=== PATIENT | male | born 1985 | race Caucasian/White ===

== ENCOUNTER 2021-03-05 19:25 | Emergency (ER) | payer OTHER ==
[2021-03-05] MEDS ORDERED: predniSONE 20 MG TABLET PO STA (20:54)
[2021-03-05] MEDS ORDERED: CYCLOBENZAPRINE 10 MG Prepack 2 PO STA (20:54)
[2021-03-05] MEDS ORDERED: HYDROcod/ACET 5/325 Prepack 4 PO STA (20:54)
[2021-03-05] MEDS ORDERED: KETOROLAC 60 MG/2 ML VIAL IM STA (20:54)
--- NOTE | 2021-03-05 20:56 | ED Physician Documentation ---
PD HPI BACK PAIN - Stated complaint Stated Complaint: LOW BACK PAIN - Chief complaint Chief Complaint: Back Pain - History obtained from History obtained from: Patient - Additional information Additional information: 35-year-old gentleman with long history of mild back problems was getting up from a sitting position today and suddenly developed significantly more severe lumbar pain radiating into both legs. He feels like he is locked up and cannot move. Pain radiates into the buttocks and thighs just a bit. He denies weakness, numbness, tingling, saddle anesthesia, fevers, incontinence of bowel or bladder bladder. Review of Systems Constitutional: reports: Reviewed and negative Eyes: reports: Reviewed and negative Ears: reports: Reviewed and negative Nose: reports: Reviewed and negative Throat: reports: Reviewed and negative PD PAST MEDICAL HISTORY - Present Medications Home Medications: Ambulatory Orders Medication Instructions Recorded Confirmed HYDROcod/ACETAM 5/325 [Holden 5/325] 1 - 2 tab PO Q6H PRN #10 tablet 03/05/21 predniSONE [Deltasone] 20 mg PO [id number] #21 tab 03/05/21 - Allergies Allergies/Adverse Reactions: Allergies Allergy/AdvReac Type Severity Reaction Status Date / Time No Known Drug Allergies Allergy Verified 03/05/21 19:29 PD ED PE NORMAL - Vitals Vital signs reviewed: Yes - General General: Alert and oriented X 3, Other (Winces with any motion. Comfortable at rest.) - HEENT HEENT: PERRL, EOMI - Neck Neck: Supple, no meningeal sign, No bony TTP - Back Back: Other (Some tenderness of the paralumbar musculature especially on the right. No severe midline spinal tenderness.) - Extremities Extremities: Other (The patient has equal and normal Achilles and patellar reflexes bilaterally. Normal sensation in all areas of the legs. Patient denies saddle anesthesia. Normal strength in flexion-extension at the ankles, knees, and flexion of the hips.) - Neuro Neuro: Alert and oriented X 3, Normal speech Results - Vitals Vitals: Vital Signs - 24 hr 03/05/21 19:29 Temperature 36.5 C Heart Rate 72 Respiratory 16 Rate Blood Pressure 150/80 H O2 Saturation 98 Oxygen O2 Source Room air PD MEDICAL DECISION MAKING - ED course ED course: This patient has seemingly uncomplicated musculoskeletal back pain. The patient has no "red flags." Specifically denies IV drug use, fevers, incontinence, saddle anesthesia. Spinal epidural abscess was considered, given that the patient has no fever, is not diabetic, has no spinal tenderness, does not use IV drugs, and has no bilateral neurologic symptoms, the diagnosis of spinal e pidural abscess is considered exceedingly unlikely. I am prescribing a short course of short-acting opioid pain medication for this patient. 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 I have discussed that the opioids are for short term therapy only, and will not be refilled from the ED. Departure - Departure Disposition: Home, Self Care Clinical Impression: Back pain Qualifiers: Back pain location: low back pain Chronicity: acute Back pain laterality: right Sciatica presence: without sciatica Qualified Code(s): M54.5 - Low back pain Condition: Good Record reviewed to determine appropriate education?: Yes Instructions: ED Neck Back Pain General Prescriptions: predniSONE [Deltasone] 20 mg PO [id number] #21 tab HYDROcod/ACETAM 5/325 [Holden 5/325] 1 - 2 tab PO Q6H PRN #10 tablet PRN Reason: Pain Comments: You can and should take an hqah-bqn-xqtsyxs anti-inflammatory such as ibuprofen or Aleve along with the other medications. Heat and gentle stretching. [place] Return for new or worsening symptoms. I am prescribing a short course of narcotic pain medication for you. These are potentially dangerous and addictive medications that should be used carefully. These medications may constipate you. Take an rcsz-njo-ynxcqch stool softener (docusate) twice daily with plenty of water while taking these medications. If you go 24 hours without a bowel movement, take nctf-tqj-reqqwlv miralax, per package instructions. Do not drink or drive while taking these medications. If you received narcotic or sedating medications while in the emergency department, do not drive for 24 hours. Store this medication in a safe, secure place and out of reach of children. It is a violation of federal law to give or sell this medication to another person or to use in a manner other than prescribed. The ED will not refill narcotic prescriptions, including prescriptions lost or stolen. To dispose of unwanted medications: 1. [facility] at [address] in [place] has a medication drop box. They accept prescription medications (in pill form) Paul through Friday 9:00 a.m. to 5:00 p.m. 2. The [facility] [employer] accepts prescription medications (in pill form only) for disposal year round. Call for more information. 3. Contact the [facility] for the next [facility] sponsored prescription drug collection event. , [phone], or [phone]; Note that many narcotic pain relievers also contain Tylenol/acetaminophen. Please ensure that your total dose of acetaminophen from all sources does not exceed 3 g (3000 mg) per day. Forms: Activity restrictions
[2021-03-05 21:20] VITALS: BP 128/75
== END 2021-03-05 21:18 | disposition home or self-care (01) ==
LOC: ED 19:25
DX: M54.5 Low back pain (principal)
CPT/HCPCS: 96372; 99283; 99284; J7512

== ENCOUNTER 2023-02-13 13:44 | Outpatient (CLI) | payer OTHER ==
--- NOTE | 2023-02-13 14:28 | Sleep Patient Instructions ---
Sleep Center Visit Summary - Patient Visit Information Reason for Visit: Initial consult for evaluation of sleep disordered breathing and other sleep issues. - Patient Instructions Instructions Attached: Sleep Study, Sleep Clinic Visit Additional Instructions: You will be completing a sleep study, either an in-lab polysomnography (PSG) or home sleep study (HST). You will follow-up in the sleep care office after the sleep study is completed to hear the results and talk about therapy, if needed. A prescription for Zolpidem 5 mg for night of sleep study. Please fill prescription and bring with you to the study. You will be called by our office staff to schedule this appointment, but you may contact us with any questions. - Clinic Information Contact: [facility] [address] [place] [address] [email or web address] T: [phone]
--- NOTE | 2023-02-13 14:34 | SLEEP CARE CONSULTATION ---
Information from patient questionnaire entered by Jose Martin Hyman. I have reviewed and concur with the information entered by Jose Martin Hyman. This document represents the service I personally performed and the decisions made by me, Rose Hernandez ARNP. History of Present Illness Service Date and Time: 02/13/2023 1344 Reason for Visit: New patient Chief Complaint: reports: Insomnia, Unrefreshed sleep, Snoring, Fatigue, Frequent awakenings at night Date of Onset: ABOUT 16YRS Usual bedtime: RANGES FROM 9-1030PM Time it takes to fall asleep: 1-3HRS Snores at night: Yes Observed to quit breathing while asleep: No Sleeps alone due to snoring: No Number of times waking at night: 3-5 Reasons for waking at night: reports: Pain, Other (UNKNOWN, DEVIATED SEPTUM). denies: Choking, Snoring, Gasping for air Toss, Turn, or Twitch while sleeping: Yes (very restless/moving a lot at night) Recalls having dreams: Yes Usually gets out of bed at: 5-7AM Feels refreshed in the morning: No Morning headache: Yes (3-4 times a week; AFTER WATER COFFEE FOOD) Sleepy or fatigued during the day: Yes Ever fallen asleep while driving: No Takes day naps: No Dreams during day naps: Yes Prior sleep studies: No Additional HPI information: I had the pleasure of seeing SHABBIR QUEZADA today regarding the possibility of him having a sleep disorder. His current complaints are fatigue, frequent night awakenings, insomnia, snoring and unrefreshed sleep. He states that he is fatigued every day, all the time, for as long as he can remember. He states he has trouble falling asleep. He states his mood and anxiety are issues and getting worse. He has headaches all the time and gets migraines. He never feels ready for day because he is tired in the mornings and throughout the day. He has had lab work done and no causes were found for his fatigue. He has been told that he snores regularly that is sometimes loud. He states his has told him he may have stopped breathing when sleeping. He does have a deviated septum that limits his ability to breathe through his nose. He has to sleep with his face, "stretching" left nostril, to be able to breathe comfortably and sleep. If he turns on his right side he will not be able to breathe through his nose. - Parasomnia Symptoms Ever been unable to move upon waking from sleep: Yes (rare occurance) Walks in sleep: No Talks in sleep: Yes (sometimes) Ever acted out dreams in sleep: No Ever felt weak in the knees when startled or emotional: No Bothered by creepy, crawly, restless sensations in legs: No Problems with memory or concentration: Yes (both) Subjective Initial [place] Sleepiness Scale score: 11 (02/13/23) Past Medical History Past Medical History: reports: Anxiety, Depression Social History The patient's occupation is a AM. Patient is and lives in [place]. Have you smoked in the past 12 months: No Years of smokin Quit date: 2006 Alcohol use: Yes Alcohol amount and frequency: 1-2 WEEKLY Caffeine use: Yes Caffeine amount and frequency: 1-2 DAILY IN MORNING Family History Family history of sleep disordered breathing: Yes Family Hx Sleep Apnea: Mother: Snoring, Father: Snoring Allergies and Home Medications Known drug allergies: No Drug allergies reviewed: Yes Home medication list reviewed: Yes Allergy and home medication list: Allergies No Known Drug Allergies Allergy (Verified 02/12/23 15:41) Medications: Lexapro 10 mg Excedrin Extra Strength, prn Review of Systems Weight gain over past 5 years: 20 Cardiovascular: denies: high blood pressure Respiratory: reports: shortness of breath, wheeze Gastrointestinal: reports: heartburn Neurological: reports: headaches, disorientation Psychiatric: reports: anxiety, depression. denies: Attention Deficit Hyperactivity Ear/Nose/Throat: reports: nasal congestion, sinus problems, nose bleeds, injury to nose, wisdom teeth removed. denies: tonsillectomy Endocrine: reports: sluggishness Musculoskeletal: reports: joint pain, neck pain, back pain, mobility problems Immunologic: reports: sneezing Physical Exam Vital signs obtained and entered by: JOSE MARTIN Delgado MA Blood Pressure: 128/72 (LEFT ARM) Cuff size: regular Heart Rate: 75 O2 Saturation: 98 Height: 5 ft 11 in Weight: 243 lb 6.4 oz Body Mass Index: 33.9 BMI Classification: Obese Neck circumference: 18.25 Mouth and throat: narrow oropharynx Soft palate: long Hard palate: normal Uvula: normal Uvula visualization: 50% Mallampati Class II Tongue: enlarged in size with teeth sheridan on lateral edges Tonsils: small Neck: normal w/o lymphadenopathy or thyromegaly Heart: regular rate and rhythm Lungs: clear bilaterally Impression and Plan 1. Suspected Obstructive Sleep Apnea-Hypopnea Syndrome, as suggested by a history of loud and irregular snoring, morning headache, frequent awakening during the night, unrefreshed sleep, cognitive impairment, and excessive daytime sleepiness. Narrow oropharynx and obesity are common predisposing factors for obstructive sleep apnea-hypopnea syndrome. I recommend proceeding to polysomnography to confirm the diagnosis and to assess severity. If the patient has significant sleep disordered breathing, a manual CPAP titration study will also be performed to find the optimal treatment pressure. I informed the patient of what the sleep studies involve and after some discussion, obtained agreement to proceed. The pathophysiology of obstructive sleep apnea-hypopnea syndrome was discussed with the patient and health risks of cardiovascular and cerebrovascular disease if not treated. Risks of drowsy driving discussed in detail and patient advised to avoid long distance driving and to hand assembler for puller over at the first sign of drowsiness. Patient agreed to plan. Patient concerned that he will have difficulty getting to sleep. He has used sleep aides in the past but has not been using them for the last year. He has used Ambien in the past but did not like how groggy he felt after using it. I advised him that I can give him a one night dose of Zolpidem 5 mg and that he should make arrangements for someone to drive him home after the test if he feels he will be too sleepy to drive home. He voiced understanding and agreement. * Schedule polysomnography +- manual CPAP titration study and return in 1-2 weeks after the study to discuss result and initiate therapy. * A prescription for 5 mg Zolpidem for night of sleep study was given to patient to bring to the study with him * Avoid long distance driving or driving when feeling sleepy. * Avoid alcohol, sedative and muscle relaxant around bedtime. * Attempt to lose weight. * Review instructions provided by trained office staff on how to prepare for the sleep study. * Return for follow-up after sleep study completed. Counseling Topics: Weight loss health impact Visit Type: In Office Time Spent with Patient (minutes): 35 Provider Statement: I spent 100% of the Face to Face Visit with the patient with greater than 50% spent counseling the patient and coordination of care.
[2023-02-13 14:36] VITALS: BP 128/72
== END 2023-02-13 13:45 | disposition home or self-care (01) ==
LOC: SC 13:44
PROVIDERS: ATTEND Nurse Practitioner Family
DX: R06.83 Snoring (principal); G47.8 Other sleep disorders; R51.9 Headache, unspecified; R53.83 Other fatigue; F32.A Depression, unspecified; E66.9 Obesity, unspecified; Z68.33 Body mass index [BMI] 33.0-33.9, adult
CPT/HCPCS: 99203; 99212

== ENCOUNTER 2023-11-13 10:14 | Emergency (ER) | payer OTHER ==
[2023-11-13 10:50] LABS: BASOPHILS # (AUTO) 0.1 10^3/uL (0.0-0.1); BASOPHILS % (AUTO) 0.5 %; EOSINOPHILS # (AUTO) 0.1 10^3/uL (0.0-0.7); EOSINOPHILS % (AUTO) 0.9 %; HGB - HEMOGLOBIN 15.7 g/dL (14.0-18.0); LYMPHOCYTES # (AUTO) 2.8 10^3/uL (1.5-3.5); LYMPHOCYTES % (AUTO) 21.6 %; MEAN CORPUSCULAR HEMOGLOBIN 31.3 pg (27.0-31.0); MEAN CORPUSCULAR HGB CONC 34.9 g/dL (32.0-36.0); MEAN CORPUSCULAR VOLUME 89.6 fL (80.0-94.0); MEAN PLATELET VOLUME 8.7 fL (7.4-11.4); MONOCYTES # (AUTO) 1.3 10^3/uL (0.0-1.0); MONOCYTES % (AUTO) 9.6 %; NEUTROPHILS # (AUTO) 8.8 10^3/uL (1.5-6.6); NEUTROPHILS % (AUTO) 67.1 %; PLT - PLATELET COUNT 331 10^3/uL (130-450); RED BLOOD COUNT 5.02 10^6/uL (4.70-6.10); RED CELL DISTRIBUTION WIDTH 11.8 % (12.0-15.0); WHITE BLOOD COUNT 13.1 x10^3/uL (4.8-10.8)
[2023-11-13 11:16] LABS: ALBUMIN 4.7 g/dL (3.2-5.5); ALBUMIN/GLOBULIN RATIO 1.6 (1.0-2.2); BILIRUBIN,TOTAL 0.9 mg/dL (0.2-1.0); CALCIUM 9.3 mg/dL (8.5-10.3); CREATININE 0.9 mg/dL (0.6-1.3); POTASSIUM 4.3 mmol/L (3.5-4.5); TOTAL PROTEIN 7.7 g/dL (6.4-8.9)
--- NOTE | 2023-11-13 12:17 | ED Physician Documentation ---
PD HPI ABD PAIN - Stated complaint Stated Complaint: LT SIDE ABD PX - Chief complaint Chief Complaint: Abd Pain - History obtained from History obtained from: Patient - History of Present Illness Timing - onset: How many days ago (3) Timing - duration: Days (3) Timing - details: Gradual onset, Still present Quality: Cramping, Aching, Pain Location: Periumbilical, LLQ Radiation: Lower back. No: Left flank Improved by: Laying still. No: Eating, Vomiting Worsened by: Moving, Palpation. No: Eating, Breathing Associated symptoms: Nausea, Vomiting, Constipation (noted firm stools but not hard diarrhea per se.). No: Fever, Diarrhea Similar symptoms before: Has not had sx before Review of Systems Constitutional: reports: Myalgias. denies: Fever, Chills Nose: denies: Rhinorrhea / runny nose, Congestion Throat: denies: Sore throat Respiratory: denies: Cough GI: reports: Abdominal Pain, Nausea, Constipation. denies: Diarrhea : denies: Dysuria PD PAST MEDICAL HISTORY - Past Medical History Past Medical History: No - Past Surgical History Past Surgical History: Yes - Present Medications Home Medications: Ambulatory Orders Medication Instructions Recorded Confirmed Amox/Clav 875/125 [Augmentin] 1 each PO Q12H #14 tablet 11/13/23 Docusate Sodium 100Mg Capsule 100 mg PO DAILY #15 cap 11/13/23 [Colace 100Mg Capsule] HYDROcod/ACETAM 5/325 [Drummonds 5/325] 1 ea PO Q6H PRN #8 tablet 11/13/23 Meloxicam [Mobic] 7.5 mg PO BID 10 Days #20 tablet 11/13/23 Ondansetron Odt [Zofran] 4 mg TL Q6H PRN #10 tablet 11/13/23 - Allergies Allergies/Adverse Reactions: Allergies Allergy/AdvReac Type Severity Reaction Status Date / Time No Known Drug Allergies Allergy Verified 11/13/23 10:35 - Social History Does the pt smoke?: No Smoking Status: Never smoker Does the pt drink ETOH?: Yes Does the pt have substance abuse?: No - Immunizations Immunizations are current?: Yes PD ED PE NORMAL - Vitals Vital signs reviewed: Yes - General General: Alert and oriented X 3, Well developed/nourished, Other (moderate discomfort when resting. ) - Cardiac Cardiac: RRR, No murmur - Respiratory Respiratory: No respiratory distress, Clear bilaterally - Abdomen Abdomen: Normal bowel sounds, Soft, Non distended, No organomegaly, Other (very tender LLQ and periumbilical area with local guarding and some percussion tender. No rebound noted. NO hernias.) Results - Vitals Vitals: Vital Signs - 24 hr 11/13/23 11/13/23 11/13/23 10:31 13:08 16:07 Temperature 36.7 C Heart Rate 89 84 78 Respiratory 16 15 15 Rate Blood Pressure 139/90 H 130/83 H 121/84 H O2 Saturation 99 96 99 Oxygen O2 Source Room air - Labs Labs: Laboratory Tests 11/13/23 11/13/23 11/13/23 10:37 10:46 10:46 WBC 13.1 H RBC 5.02 Hgb 15.7 Hct 45.0 MCV 89.6 MCH 31.3 H MCHC 34.9 RDW 11.8 L Plt Count 331 MPV 8.7 Neut # (Auto) 8.8 H Lymph # (Auto) 2.8 [place] # (Auto) 1.3 H Eos # (Auto) 0.1 Baso # (Auto) 0.1 Absolute Nucleated RBC 0.00 Nucleated RBC % 0.0 Sodium 137 Potassium 4.3 Chloride 102 Carbon Dioxide 30 Anion Gap 5.0 L BUN 16 Creatinine 0.9 Estimated GFR (MDRD) 95 Glucose 105 H Calcium 9.3 Total Bilirubin 0.9 AST 20 ALT 33 Alkaline Phosphatase 95 Total Protein 7.7 Albumin 4.7 Globulin 3.0 Albumin/Globulin Ratio 1.6 Lipase 15 Urine Color DARK YELLOW Urine Clarity CLEAR Urine pH 5.5 Ur Specific [place] >=1.030 H Urine Protein NEGATIVE Urine Glucose (UA) NEGATIVE Urine Ketones NEGATIVE Urine Occult Blood NEGATIVE Urine Nitrite NEGATIVE Urine Bilirubin NEGATIVE Urine Urobilinogen 0.2 (NORMAL) Ur Leukocyte Esterase NEGATIVE Ur Microscopic Review NOT INDICATED Urine Culture Comments NOT INDICATED - Rads (name of study) abd/pelvic CT Relevant Findings:: Prelim report reviewed, EMP independent interpretation of test (local inflammation in mid descending area with diverticula noted. No noted free air nor fluid. Some local inflammation. ) PD Medical Decision Making - ED course Complexity details: reviewed results (abd/pelvic CT showing diverticulitis mid descending colon without complications. No stones. Normal appendix. ), re-ev aluated patient (Pain is improved satisfactorily with IV fluids, Zofran, Toradol and Tylenol. Pt driving himself here and home so did not want narcoitic meds. ), considered differential (left lower abd pain and tenderness. No history of same. tender to palpation so less likely stone. Consider diverticular. ), d/w patient Departure - Departure Disposition: 01 Home, Self Care Clinical Impression: Left lower quadrant abdominal pain, Acute diverticulitis Condition: Stable Instructions: ED Diverticulitis Follow-Up: JEFE EM MD [Primary Care Provider] - Prescriptions: Amox/Clav 875/125 [Augmentin] 1 each PO Q12H #14 tablet Docusate Sodium 100Mg Capsule [Colace 100Mg Capsule] 100 mg PO DAILY #15 cap Meloxicam [Mobic] 7.5 mg PO BID 10 Days #20 tablet HYDROcod/ACETAM 5/325 [Drummonds 5/325] 1 ea PO Q6H PRN #8 tablet PRN Reason: Pain Ondansetron Odt [Zofran] 4 mg TL Q6H PRN #10 tablet PRN Reason: Nausea / Vomiting Comments: Your CT scan shows some inflammation around a small pouch from the intestine called a diverticulum. This would be acute diverticulitis. There is no signs of it having perforated or formed an abscess. These complications would be fairly uncommon. We typically would treat this with staying well-hydrated and soft diet for a few days. Anti-inflammatories are commonly used and since you had been having firm stools, mild stool softener to decrease some of the pressure off the wall. To that add Tylenol every 4-6 hours if needed for pains. You can add ondansetron if needed for nausea. Above that if your pain is bad enough, you can add hydrocodone/acetaminophen if needed for pains. I prescribed just a few of these in case. Rest off work today and tomorrow at least. Recheck if not better in that timeframe of a few days and return if worse. I sent your prescriptions to [facility] pharmacy. I am prescribing a short course of narcotic pain medication for you. These are potentially dangerous and addictive medications that should be used carefully. These medications may constipate you. Take an prqb-bok-xeqgjzb stool softener such as docusate twice daily with plenty of water while taking these medications. If you go 24 hours without a bowel movement, take mntr-yer-ulpdiva MiraLAX, per package instructions. Do not drink or drive while taking these medications. If you received narcotic or sedating medications while in the emergency department do not drive for 24 hours. Store this medication in a safe, secure place and out of reach of children. It is a violation of federal law to give or sell this medication to another person or to use in a manner other than prescribed. The ED will not refill narcotic prescriptions, including prescriptions lost or stolen. You can dispose of unwanted medications at the [facility]'s office or at several pharmacies such as [facility]. Forms: PCP List, Activity restrictions Discharge Date/Time: 11/13/23 16:10
[2023-11-13 12:21] LABS: BILIRUBIN,URINE NEGATIVE (NEGATIVE); GLUCOSE, URINE (UA) NEGATIVE (NEGATIVE); KETONES,URINE (UA) NEGATIVE (NEGATIVE); LEUKOCYTE ESTERASE, URINE NEGATIVE (NEGATIVE); NITRITE,URINE NEGATIVE (NEGATIVE); OCCULT BLOOD,URINE NEGATIVE (NEGATIVE); PH,URINE 5.5 PH (5.0-7.5); PROTEIN,URINE NEGATIVE (NEGATIVE); UROBILINOGEN,URINE 0.2 (NORMAL) E.U./dL (NORMAL)
[2023-11-13 12:24] LABS: CLARITY,URINE CLEAR (CLEAR)
[2023-11-13] MEDS: SODIUM CHLORIDE 0.9% 1,000 ML IV STA (12:51)
[2023-11-13] MEDS: KETOROLAC 30 MG/ML VIAL IVP STA (12:51)
[2023-11-13] MEDS: ONDANSETRON 4 MG/2 ML VIAL IVP STA (12:57)
[2023-11-13] MEDS ORDERED: iohexoL-300 100 ML VIAL ONE (14:15)
--- NOTE | 2023-11-13 15:15 | CT Report ---
PROCEDURE: Abdomen/Pelvis W INDICATIONS: LLQ pain for 3 days, with TTP. CONTRAST: Omni 300 100ml TECHNIQUE: After the administration of intravenous contrast, a CT scan of the abdomen and pelvis was performed. Images were recorded and evaluated at appropriate window settings. Reformats: coronal and sagittal. F or radiation dose reduction, the following was used: automated exposure control, adjustment of mA and /or kV according to patient size. COMPARISON: None. FINDINGS: Image quality: Diagnostic. Lower chest: Unremarkable. Liver: Hepatic steatosis. Gallbladder and biliary tree: No radiopaque stones or wall thickening. No biliary dilation. Spleen: Enlarged. Pancreas: No pancreatic ductal dilation. Adrenals: No adrenal nodule. Kidneys and ureters: No hydronephrosis. No renal cystic lesion which requires follow up. Incidental n ote of right renal hypodensity which likely represents a cyst. No solid mass. Stomach, bowel and peritoneum: No bowel distension. No pathologic free fluid. Scattered colonic diver ticulosis with acute diverticulitis involving a segment of proximal descending colon to the mid desce nding colon. There is mild circumferential wall thickening. No pericolonic stranding without evidence for perforation or abscess formation. Normal appendix. Lymph nodes: No central or retroperitoneal adenopathy. Vessels: No infrarenal aortic aneurysm. PELVIS Reproductive organs: Unremarkable. Bladder: No abnormal wall thickening, accounting for underdistention. Pelvic lymph nodes: No pelvic adenopathy by size criteria. Bones: No aggressive osseous abnormality. No acute compression fracture. Other: No significant inguinal hernia. Small fat-containing umbilical hernia without acute inflammati on. IMPRESSION: Acute diverticulitis involving the proximal to mid descending colon. No evidence for perforation or a bscess formation. Hepatic steatosis. Mild splenomegaly. Other chronic findings as above. Reviewed by: Stephen Palacios MD on 11/13/2023 3:14 PM PST Approved by: Stephen Palacios MD on 11/13/2023 3:14 PM PST Station ID: [id number]
[2023-11-13] MEDS: iohexoL-300 100 ML VIAL IVP ONE (15:21)
[2023-11-13] MEDS: AMOX/CLAV 875 MG/125 MG TABLET PO STA (15:42)
[2023-11-13] MEDS: ACETAMINOPHEN 500 MG TABLET PO STA (15:42)
[2023-11-13 16:12] VITALS: BP 121/84; O2SAT 99
== END 2023-11-13 16:10 | disposition home or self-care (01) ==
LOC: ED 10:14
DX: K57.32 Diverticulitis of large intestine without perforation or abscess without bleeding (principal)
CPT/HCPCS: 36415; 74177; 80053; 81003; 83690; 85025; 96374; 96375; 99284; A9270; Q9967; 81001; 87086

== ENCOUNTER 2024-01-24 15:50 | Outpatient (CLI) | payer OTHER ==
--- NOTE | 2024-01-24 21:08 | Ultrasound Report ---
PROCEDURE: Extremity Soft Tissue Limited INDICATIONS: WRIST PAIN TECHNIQUE: Real-time scanning was performed of the , with image documentation. COMPARISON: None. FINDINGS: There is no mass or other sonographic abnormality visualized within the left wrist in the area of clinical interest. IMPRESSION: No sonographic abnormalities in the area of pain. No sonographic findings to suggest loli glion cyst. If pain persists, and further characterization is warranted, MRI of this region is recomm ended. Reviewed by: Yareli Rea MD on 01/24/2024 9:06 PM PDT Approved by: Yareli Rea MD on 01/24/2024 9:06 PM PDT Station ID: [id number]
== END 2024-01-24 15:51 | disposition home or self-care (01) ==
LOC: DI 15:50
DX: M25.532 Pain in left wrist (principal)

== ENCOUNTER 2024-03-05 19:35 | Outpatient (CLI) | payer OTHER | END 2024-03-05 19:36 | disposition home or self-care (01) | LOC: SC 19:35 | PROVIDERS: ATTEND Nurse Practitioner Family | DX: R06.83 Snoring (principal) | CPT/HCPCS: 95810 ==

== ENCOUNTER 2024-04-06 10:33 | Outpatient (CLI) | payer OTHER ==
--- NOTE | 2024-04-06 10:20 | SLEEP CARE CONSULTATION ---
Information from patient questionnaire entered by Taylor Hyman. I have reviewed and concur with the information entered by Taylor Hyman. This document represents the service I personally performed and the decisions made by , Rose Hernandez ARNP. History of Present Illness Service Date and Time: 04/06/2024 1000 Initial [place] Sleepiness Scale score: 11 (02/13/23) Current [place] Sleepiness Scale score: 7 Additional HPI information: SHABBIR QUEZADA returns via video appointment today for follow up and results of the recently performed polysomnography on 03/05/2024. The patient was informed of the following findings: I explained the pathophysiology behind obstructive sleep apnea. Patient does not have sleep apnea and was advised how weight gain could increase the risk of developing sleep apnea in the future. I strongly encouraged the patient to lose weight. Patient has loud snoring. Snoring can be reduced by weight loss. Weight loss is best achieved with diet consult. Patient instructed to contact PCP for referral. Snoring can also be treated with an oral appliance from a dentist. Advised to check insurance coverage. In addition, an ENT evaluation can be do to see if other treatment is indicated. Patient counseled not drink alcohol less than 4 hours before bedtime as it can increase snoring and apnea. Patient was cautioned about risks of drowsy driving until sleepiness symptoms resolve. Patient denies drowsy driving. Sleep Study - Results Type of Sleep Study: Polysomnography (COMPLETED 03/05/24) Prior sleep studies: No Polysomnography/Home Sleep Study results: IMPRESSION: The quality of the study is good. The patient had normal sleep efficiency. The sleep architecture was also normal. Respiratory monitoring showed no significant sleep disordered breathing (AHI = 3.4) or hypoxia (shonna oxygen saturation of 86% and only 0.07% to the total sleep time was spent with oxygen saturation below 90%). The few respiratory events occurred mainly during REM sleep. The patient slept almost exclusively in supine position (supine AHI = 3.3; non-supine = 4.40). Snore was loud in intensity. There was no significant periodic leg movement of sleep. Cardiac rhythm was normal sinus rhythm without significant arrhythmia. No abnormal behavior (parasomnia) observed during the night. CONCLUSIONS and RECOMMENDATIONS: 1. Primary Snore (ICD-10 R06.83), loud, but no significant sleep disordered breathing. This is a normal in-laboratory polysomnography. Clinical correlation advised. Allergies and Home Medications Known drug allergies: No Drug allergies reviewed: Yes Home medication list reviewed: Yes (no changes) Allergy and home medication list: Allergies No Known Drug Allergies Allergy (Verified 04/02/24 10:40) Review of Systems Review of systems same as previous: Yes (no changes) Physical Exam Vital signs obtained and entered by: ROSE SOTO Height: 5 ft 11 in Weight: 240 lb (per pt) Body Mass Index: 33.5 BMI Classification: Obese Impression and Plan 1. Snoring but no significant sleep disordered breathing. Patient advised that often weight loss will reduce snoring as well as apnea risk. An oral appliance can also be used for snoring. This would require a dental consultation. Patient cautioned not to use other online appliances as can cause bite issues. Patient is advised to check if insurance will cover. An ENT consult can also be helpful to determine if any other treatment is an option. 2. Obesity, unspecified. Currently patients BMI is 33.5. Obesity increases the risk of apnea, CPAP pressure requirements and overall health risks especially cardiovascular and diabetes. Thus patient is advised to lose weight. * Attempt to lose weight * Avoid alcohol consumption near bedtime * The patient is cautioned about driving until sleepiness is completely re solved. * Return as needed for follow up. Counseling Topics: Weight loss health impact Follow up with Sleep Care in: as needed Visit Type: Telehealth Video Video Type: Doximity Patient Location: Home ([facility] home) Location of Provider: Office Patient agrees and consents to this telehealth visit type: Yes Patient agrees to have their insurance billed: Yes Time Spent with Patient (minutes): 11 Provider Statement: I spent 100% of the Telehealth Video Call with the patient with greater than 50% spent counseling the patient and coordination of care.
== END 2024-04-06 10:34 | disposition home or self-care (01) ==
LOC: SC 10:33
PROVIDERS: ATTEND Nurse Practitioner Family
DX: R06.83 Snoring (principal); E66.9 Obesity, unspecified; Z68.33 Body mass index [BMI] 33.0-33.9, adult